=== PATIENT | male | born 1965 | race Caucasian/White ===

== ENCOUNTER 2017-05-07 00:52 | Emergency (ER) | payer BC, OTHER ==
[~2017-05-07] VITALS: Ht 177.8 cm; Wt 82.7 kg
[~2017-05-07 00:52] MED LIST: ATV1; ESCI1TAB10
[2017-05-07 01:03] VITALS: TEMP 36.7; Ht 177.8 cm; Wt 82.7 kg
[2017-05-07] MEDS ORDERED: ONDANSETRON INJ 2 MG/ML 2 ML VIAL IV STA (01:34)
[2017-05-07] MEDS ORDERED: SODIUM CHLORIDE 0.9% 1000ML 1,000 ML IV STA (01:34)
[2017-05-07 01:56] LABS: BASO % 0.5 %; BASO ABS # 0.02 K/uL (0-0.2); COMPLETE YES; EOS % 1.6 %; LYMPH % 13.7 %; LYMPH ABS # 0.51 K/uL (1.2-3.4); MEAN CELL VOLUME 88.5 fL (80-100); MEAN CORPUSCULAR HEMOGLOBIN 29.9 pg (25-34); MEAN CORPUSCULAR HGB CONC 33.8 g/dl (32-36); MEAN PLATELET VOLUME 8.7 fL (7.4-10.4); MONO % 17.7 %; NEUT % 66.5 %; PLATELET COUNT 175 K/uL (130-400); RED BLOOD COUNT 5.31 M/uL (4.7-6.1); WHITE BLOOD COUNT 3.73 K/uL (4.8-10.8)
[2017-05-07] MEDS ORDERED: ATOR10TA88 PO (02:18)
[2017-05-07] MEDS ORDERED: CHOL1TAB42 PO (02:18)
[2017-05-07 02:23] LABS: BUN/CREATININE RATIO 20.8 (10-20); CALCIUM 8.8 mg/dl (8.5-10.1); CREATININE 1.2 mg/dl (0.60-1.40); POTASSIUM 3.3 mmol/L (3.5-5.1)
[2017-05-07 02:57] LABS: URINE APPEARANCE CLEAR (CLEAR); URINE BILIRUBIN NEG (NEG); URINE COLOR YELLOW; URINE NITRITE NEG (NEG); URINE SPECIFIC GRAVITY 1.023 (1.000-1.030); UROBILINOGEN NEG (NEG)
[2017-05-07 03:03] LABS: MANUAL MICROSCOPIC REQUIRED? NO; REVIEW REQ? NO
[2017-05-07 04:33] VITALS: BP 122/79; PULSE 69; O2SAT 96
--- NOTE | 2017-05-07 04:45 | EMERGENCY ROOM VISIT NOTE ---
History Report prepared by Nadia: No Damon Under the Supervision of: Dr. Alondra Marcus D.O. First contact with patient: 01:26 Chief Complaint: FLU LIKE SX Stated Complaint: NAUSEA,DIARRHEA,CHILLS,[id number] History of Present Illness The patient is a 52 year old male who presents to the Emergency Room with complaints of persistent diarrhea started 3 days ago. His symptoms started 4 days ago with chills and nausea. He started having diarrhea 3 days ago. Since then his symptoms have persisted and worsened. He has been feeling hot and sweaty at times. He has had headache and back pain for which he took Advil. He has also tried taking Imodium and Zofran. He currently denies any headache or back pain. He has been feeling weak. He notes that he has been eating and drinking very little. He denies any chest pain, SOB, bloody stools, or abdominal pain. He has not had any known sick contacts. Source of History: patient, spouse/significant other Onset: 4 days ago Position: other (global) Quality: other (diarrhea) Timing: other (persistent) Associated Symptoms: + chills, + nausea, + weakness, No chest pain, No SOB, No vomiting, No abdominal pain, No hematochezia Review of Systems See HPI for pertinent positives & negatives. A total of 10 systems reviewed and were otherwise negative. Past Medical & Surgical Surgical Problems: (1) S/P right knee arthroscopy Family History Cancer Diabetes mellitus Heart disease Hypertension Social History Smoking Status: Never Smoker Marital Status: Occupation Status: employed Current/Historical Medications Scheduled Atorvastatin (Lipitor), 10 MG PO DAILY Cholecalciferol (Vitamin D), 5,000 UNIT PO DAILY Allergies Coded Allergies: Codeine (Unverified Adverse Reaction, Mild, 05/07/17) Physical Exam Vital Signs Date Time Temp Pulse Resp B/P (MAP) Pulse Ox O2 Delivery O2 Flow Rate FiO2 05/07/17 04:33 69 16 122/79 96 05/07/17 03:13 60 18 125/80 94 Room Air 05/07/17 02:05 67 05/07/17 01:47 63 05/07/17 01:03 36.7 70 18 126/81 96 Room Air Physical Exam HEENT: Head - normocephalic and atraumatic Pupils are equal, round, and reactive to light. Extraocular eye muscles are intact, and sclera are anicteric. Nose - moist nasal mucosa without discharge. Mouth - moist buccal mucosa. Oropharynx is nonerythematous and there is no tonsillar exudate or edema noted. Neck: Supple; no JVD, nuchal rigidity, cervical lymphadenopathy. Heart: Regular rate and rhythm. There is a normal S1 and S2 with no murmurs, clicks, or gallops appreciated. Lungs: Clear to auscultation bilaterally with no wheezes, rales, or rhonchi. Abdomen: Soft, completely nontender, nondistended, with good bowel sounds. There are no palpable pulsatile masses or hepatosplenomegaly. There is no guarding, rigidity, or rebound noted. Extremities: No evidence of cyanosis, clubbing, or edema. There are easily palpable peripheral pulses. Skin: warm and dry with good turgor and no rashes. Medical Decision & Procedures Laboratory Results 05/07/17 01:50 Red Blood Count 5.31, Mean Corpuscular Volume 88.5, Mean Corpuscular Hemoglobin 29.9, Mean Corpuscular Hemoglobin Concent 33.8, Mean Platelet Volume 8.7, Neutrophils (%) (Auto) 66.5, Lymphocytes (%) (Auto) 13.7, Monocytes (%) (Auto) 17.7, Eosinophils (%) (Auto) 1.6, Basophils (%) (Auto) 0.5, Neutrophils # (Auto ) 2.48, Lymphocytes # (Auto) 0.51, Monocytes # (Auto) 0.66, Eosinophils # (Auto ) 0.06, Basophils # (Auto) 0.02 05/07/17 01:50 Test 05/07/17 01:50 05/07/17 02:47 White Blood Count 3.73 K/uL (4.8-10.8) Red Blood Count 5.31 M/uL (4.7-6.1) Hemoglobin 15.9 g/dL (14.0-18.0) Hematocrit 47.0 % (42-52) Mean Corpuscular Volume 88.5 fL (80-100) Mean Corpuscular Hemoglobin 29.9 pg (25-34) Mean Corpuscular Hemoglobin Concent 33.8 g/dl (32-36) Platelet Count 175 K/uL (130-400) Mean Platelet Volume 8.7 fL (7.4-10.4) Neutrophils (%) (Auto) 66.5 % Lymphocytes (%) (Auto) 13.7 % Monocytes (%) (Auto) 17.7 % Eosinophils (%) (Auto) 1.6 % Basophils (%) (Auto) 0.5 % Neutrophils # (Auto) 2.48 K/uL (1.4-6.5) Lymphocytes # (Auto) 0.51 K/uL (1.2-3.4) Monocytes # (Auto) 0.66 K/uL (0.11-0.59) Eosinophils # (Auto) 0.06 K/uL (0-0.5) Basophils # (Auto) 0.02 K/uL (0-0.2) RDW Standard Deviation 40.0 fL (36.4-46.3) RDW Coefficient of Variation 12.5 % (11.5-14.5) Immature Granulocyte % (Auto) 0.0 % Immature Granulocyte # (Auto) 0.00 K/uL (0.00-0.02) Anion Gap 8.0 mmol/L (3-11) Est Creatinine Clear Calc Drug Dose 72.7 ml/min Estimated GFR () 79.0 Estimated GFR (Non- 68.1 BUN/Creatinine Ratio 20.8 (10-20) Calcium Level 8.8 mg/dl (8.5-10.1) Total Bilirubin 0.6 mg/dl (0.2-1) Direct Bilirubin 0.1 mg/dl (0-0.2) Aspartate Amino Transf (AST/SGOT) 20 U/L (15-37) Alanine Aminotransferase (ALT/SGPT) 30 U/L (12-78) Alkaline Phosphatase 64 U/L (45-117) Total Protein 7.2 gm/dl (6.4-8.2) Albumin 3.7 gm/dl (3.4-5.0) Lipase 127 U/L (73-393) Urine Color YELLOW Urine Appearance CLEAR (CLEAR) Urine pH 5.0 (4.5-7.5) Urine Specific [place] 1.023 (1.000-1.030) Urine Protein NEG (NEG) Urine Glucose (UA) NEG (NEG) Urine Ketones 1+ (NEG) Urine Occult Blood NEG (NEG) Urine Nitrite NEG (NEG) Urine Bilirubin NEG (NEG) Urine Urobilinogen NEG (NEG) Urine Leukocyte Esterase NEG (NEG) Laboratory results per my review. Medications Administered Medications (Trade) Dose Ordered Sig/Delbert Route Start Time Stop Time Status Last Admin Dose Admin Sodium Chloride 1,000 ml @ 999 mls/hr Q1H1M STAT IV 05/07/17 01:34 05/07/17 02:34 DC 05/07/17 01:49 999 MLS/HR Ondansetron HCl (Zofran Inj) 4 mg NOW STAT IV 05/07/17 01:34 05/07/17 01:36 DC 05/07/17 01:49 4 MG Procedure Medications: Zofran Inj 4 mg IV, NSS 1000 ml @ 999 mls/hr IV. ED Course 0132: The patient was evaluated in room A4B. A complete history and physical examination were performed. Nursing notes and previous electronic medical records were reviewed. IV lock was established and labs were drawn as above. 0134: Zofran Inj 4 mg IV, NSS 1000 ml @ 999 mls/hr IV. 0238: I reevaluated the patient. He feels better after receiving Zofran. He will provide a urine specimen. 0411: Upon reevaluation, the patient is feeling much better and is drinking Gatorade. I discussed findings and results with him and his . They verbalized agreement of the treatment plan. He was discharged home. Medical Decision The patient is a 52 year old male who presents to the ED with diarrhea. Differential diagnosis includes food borne illness, gastritis, enteritis, colitis, infectious diarrhea, dehydration. Labs: white count 3.7, stable H&H, potassium 3.3, BUN 25, creatinine 1.2, glucose 132, LFTs and lipase were normal, 1+ ketones in the urine. This is a 52-year-old male patient who has had significant nausea, decreased oral intake and diarrhea over the past couple of days. He is now suffering from generalized weakness. Physical exam, he appears to be dehydrated. Laboratory studies confirm this. He received IV crystalloid therapy with some Zofran and was feeling much better. He was able to drink Gatorade without any difficulty. He had no episodes of diarrhea while here in the emergency department. Medication Reconcilliation Current Medication List: was personally reviewed by me Blood Pressure Screening Patient's blood pressure: Normal blood pressure Blood pressure disposition: Did not require urgent referral Impression Primary Impression: Diarrhea Additional Impression: Dehydration Scribe Attestation The scribe's documentation has been prepared under my direction and personally reviewed by me in its entirety. I confirm that the note above accurately reflects all work, treatment, procedures, and medical decision making performed by me. Departure Information Dispostion Home / Self-Care Referrals Kvng Michelle MD (PCP) Forms HOME CARE DOCUMENTATION FORM, IMPORTANT VISIT INFORMATION Patient Instructions Diarrhea, ED Dehydration, My [facility] Additional Instructions Rest take plenty of clear liquids Use imodium for diarrhea. If diarrhea continues, follow up with PCP take plenty of clear liquids Take foods high in potassium Problem Qualifiers Primary Impression: Diarrhea Diarrhea type: unspecified type Qualified Codes: R19.7 - Diarrhea, unspecified
== END 2017-05-07 04:33 | disposition home or self-care (01) ==
LOC: C.EDB 00:54 → C.EDA 04:33
DX: E86.0 Dehydration (principal); R19.7 Diarrhea, unspecified; Z96.651 Presence of right artificial knee joint; Z79.899 Other long term (current) drug therapy; Z88.5 Allergy status to narcotic agent; Z80.9 Family history of malignant neoplasm, unspecified; Z83.3 Family history of diabetes mellitus; Z82.49 Family history of ischemic heart disease and other diseases of the circulatory system